=== PATIENT | female | born 2000 | race Caucasian/White ===

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

== ENCOUNTER → 2018-01-12 | Outpatient (CLI) | payer BC, OTHER ==
[2018-01-12 10:21] LABS: BASO # 0.1 (0.0-0.2); BASO % 1.4 % (0.0-2.0); EOS # 0.1 (0.0-0.7); EOS % 1.6 % (0-4.0); GRAN # 2.1 (1.4-6.5); GRAN % 48.2 % (42.2-75.2); HEMATOCRIT 44.5 % (35.0-45.0); LYMPH # 1.8 (1.2-3.4); LYMPH % 41.5 % (20.0-51.0); MEAN CELL VOLUME 90 fl (80.0-95.0); MEAN CORPUSCULAR HEMOGLOBIN 30 pg (26.0-32.0); MEAN CORPUSCULAR HGB CONC 34 g/dl (33.0-37.0); MEAN PLATELET VOLUME 11.3 fl (7.4-10.4); MONO # 0.3 (0.1-0.6); MONO % 7.1 % (1.7-9.3); PLATELET COUNT 188 K/mm3 (130-400); RED BLOOD COUNT 4.94 M/mm3 (4.10-5.30); REDCELL DISTRIBUTION WIDTH-CV 12.4 % (11.5-14.5)
== END ==
LOC: COL.LAB 09:58
PROVIDERS: Family Medicine
DX: T14.8XXA Other injury of unspecified body region, initial encounter (principal)

== ENCOUNTER 2018-12-13 16:56 | Emergency (ER) | payer SELFPAY ==
[~2018-12-13] VITALS: Ht 165.1 cm; Wt 64.5 kg
[2018-12-13 17:06] VITALS: BP 124/81; PULSE 80; TEMP 98
[2018-12-13] MEDS ORDERED: ZOLOFT 50MG50 MG PO (17:08)
== END 2018-12-13 17:59 | disposition home or self-care (01) ==
LOC: COL.ER 16:56
DX: S61.211A Laceration without foreign body of left index finger without damage to nail, initial encounter (principal); W26.0XXA Contact with knife, initial encounter; Y92.59 Other trade areas as the place of occurrence of the external cause

== ENCOUNTER 2018-12-22 10:03 | Emergency (ER) | payer OTHER ==
[~2018-12-22 10:03] MED LIST: ZOLOFT 50MG50 MG PO
[2018-12-22 10:13] VITALS: BP 124/79; PULSE 79; TEMP 99
== END 2018-12-22 10:19 | disposition home or self-care (01) ==
LOC: COL.ER 10:03
DX: S61.211D Laceration without foreign body of left index finger without damage to nail, subsequent encounter (principal); X58.XXXD Exposure to other specified factors, subsequent encounter

== ENCOUNTER → 2020-01-30 | Outpatient (CLI) | payer OTHER, BC | LOC: MC.RAD 01-21 13:00 | DX: N63.11 Unspecified lump in the right breast, upper outer quadrant (principal) ==

== ENCOUNTER → 2020-06-26 | Outpatient (CLI) | payer OTHER, BC | LOC: COL.RAD 07:26 | DX: N93.9 Abnormal uterine and vaginal bleeding, unspecified (principal); N83.201 Unspecified ovarian cyst, right side ==

== ENCOUNTER → 2020-08-14 | Outpatient (CLI) | payer OTHER, BC | LOC: MC.RAD 07:00 | DX: N63.11 Unspecified lump in the right breast, upper outer quadrant (principal) ==

== ENCOUNTER → 2021-02-25 | Outpatient (CLI) | payer BC | LOC: MC.RAD 02-19 11:00 | DX: D24.1 Benign neoplasm of right breast (principal) ==